=== PATIENT | female | born 1995 | race Caucasian/White ===

== ENCOUNTER 2019-02-27 17:29 | Inpatient (IN) | payer OTHER ==
[2019-02-27] MEDS ORDERED: CARBOPROST TROME 250 MCG/ML IM PRN (17:31)
[2019-02-27] MEDS ORDERED: Ringers Lactate 1,000 ML IV PRN (17:31)
[2019-02-27] MEDS ORDERED: METHYLERGONOVINE 0.2MG/ML AMP IM PRN (17:31)
[2019-02-27] MEDS ORDERED: BUTORPHANOL 1 MG/ML INJ IV PRN (17:31)
--- OUTSIDE RECORDS SUMMARY | 2019-02-27 17:32 | XMS REPORT ---
:1995 Author Organization [employer] Care Team Providers Name Role Phone Singh Pacheco Provider Role Unavailable Allergies No Known Allergies Problems Problem Type Condition Code Onset Dates Condition Status Assessment Supervision of high risk O09.93 Active in third trimester Problem Supervision of high risk O09.92 Active in second trimester Problem Short interval between pregnancies O09.891 Active affecting in first trimester, antepartum Problem Supervision of high risk O09.93 Active in third trimester Problem Abdominal discomfort R10.9 Active Problem Possible urinary tract infection R39.89 Active Problem Cystitis N30.90 Active Medications Medication Code Code Instructions Start End Date Status Dosage System Date Zofran ODT [facility] 65678920371 4 MG Orally Jul 11, Active 1 tablet on every 4 -6hrs or 2018 the tongue whenever and allow to necessary dissolve as needed Augmentin [facility] [id number] 875-125 MG Active 1 tablet Orally every 12 hrs Results No Known Results Summary Purpose [employer] Submission
[2019-02-27] MEDS ORDERED: ROPIVACAINE HCL 100 ML IV ONE (17:37)
[2019-02-27] MEDS ORDERED: FENTANYL CITR 100 MCG/2 ML IV ONE (17:37)
[2019-02-27] MEDS ORDERED: ROPIVACAINE HCL 2 MG/ML 100ML IV ONE (17:38)
[2019-02-27] MEDS ORDERED: ROPIVACAINE HCL 0 ML ONE (17:46)
[2019-02-27] MEDS ORDERED: OXYTOCIN/LR 20 UNIT/1,000 ML BAG IV SCH ×2 (18:00→20:00)
[2019-02-27] MEDS ORDERED: Ringers Lactate 1,000 ML IV SCH (18:00)
[2019-02-27 18:06] LABS: Basophils % 0.4 % (0-1.3); Hematocrit 32.5 % (36.0-45.0); Lymphocytes % 25.3 % (15.3-44.8); MPV 9.2 fL (7.6-11.3); RBC Red Blood Cell Count 3.96 M/uL (3.86-4.86)
[2019-02-27 18:51] VITALS: BMI 23.1
[2019-02-27 19:54] LABS: Urine Appearance CLEAR; Urine Bilirubin NEGATIVE (NEG); Urine Blood NEGATIVE (NEG); Urine Color YELLOW; Urine Glucose NEGATIVE (NEG); Urine Protein NEGATIVE (NEG); Urine Specific Gravity <=1.005 (1.005-1.030); Urine Urobilinogen 0.2 mg/dL (0.2-1.0)
[2019-02-27 19:57] LABS: Urine Microscopic Reflex NO UMIC
--- NOTE | 2019-02-27 21:27 | P.OBGYNHP ---
Certification for Inpatient Patient admitted to: Inpatient With expected LOS: <2 Midnights Patient will require the following post-hospital care: None Practitioner: I am a practitioner with admitting privileges, knowledge of patient current condition, hospital course, and medical plan of care. Services: Services provided to patient in accordance with Admission requirements found in Title 42 Section 412.3 of the Code of Federal Regulations Patient History Date of Service: 02/27/19 Reason for admission: LABOR History of Present Illness: Patient is a 23 y/o who presents to labor and delivery at 38 weeks and 5 days gestation in active labor. Patient presents c/o contractions and pelvic pain. She denies vaginal bleeding or leakage of fluid. She reports good movements. She began care at 6 weeks gestation and has been compliant with al visits. She has been followed by MFM as well due to h/o threatened labor in this and last as well as borderline short cervix. Patient was taking oral terbutaline and then procardia for the management of threatened labor but stopped at some point. She also saw cardiology due to persistent tachycardia but all work up was normal. She presented to labor and delivery 2 days ago at which time her cervix was dilated fingertip and now today she is 3-4 cm dilated. See record for further details. Allergies penicillin G Allergy (Severe, Verified 07/17/15 07:53) Nausea/Vomiting Home Medications: Pnv Cmb#95/Ferrous Fumarate/FA [ Tablet] 1 each PO DAILY 02/27/19 - Past Medical/Surgical History Has patient received pneumonia vaccine in the past: Yes Diabetic: No -: acid reflux -: NVD - 07/25/2013 -: NVD - 07/17/2015 -: NVD - 05/2017 - Family History Father -: Heart disease, Cancer - Social History Smoking Status: Never smoker Alcohol use: No CD- Drugs: No Caffeine use: No Place of Residence: Home Review of Systems 10-point ROS is otherwise unremarkable Physical Examination - Vital Signs Temperature: 99.2 F Blood Pressure: 145/88 Pulse: 86 Respirations: 18 - General General: Alert, Oriented x3, Mild distress (patient has now received an epidural ) HEENT: Atraumatic Neck: Supple Respiratory: Normal air movement Cardiovascular: No edema, Normal pulses Breasts: Normal configuration, Normal contours Gastrointestinal: Other (Gravid abdomen) Musculoskeletal: No clubbing, No swelling Integumentary: No rashes, No breakdown Neurological: Normal gait, Normal speech, Normal tone - Female Pelvic External genitalia: Normal, No lesions, No masses Vagina: Normal Cervix: Dilation (4 cm), Effacement (60%), station (-1) Uterus: Gravid Adnexa: Unable to evaluate - Obstetrics heart rate tracing: Category 2 Contractions: Frequency (every 3-5 minutes) Amniotic membrane: AROM (clear fluid) Laboratory Data (last 24 hrs) 02/27/19 17:20: WBC 8.0, Hgb 11.3 L, Hct 32.5 L, Plt Count 131 L Microbiology Data (last 24 hrs): GBS negative. Assessment and Plan - Plan Patient is a 23 y/o who presents to labor and delivery at 38 weeks and 5 days gestation in active labor. GBS negative. Epidural catheter has been placed and patient is comfortable. Rupture of membranes has been performed. Continuous /maternal monitoring will be performed. Anticipate vaginal . Discharge Plan: Home Plan to discharge in: 48 Hours - Advance Directives Does patient have a Living Will: No Does patient have a Durable POA for Healthcare: No
[2019-02-27 22:24] LABS: RPR (Rapid Plasma Reagin) NON-REACT (NON-REACT)
[2019-02-27] MEDS ORDERED: ONDANSETRON 4 MG (ODT) TAB PO PRN (23:10)
[2019-02-27] MEDS ORDERED: ACETAMINOPHEN 500 MG TAB PO PRN (23:10)
[2019-02-27] MEDS ORDERED: METHYLERGONOVINE 0.2 MG TAB PO PRN (23:10)
[2019-02-27] MEDS ORDERED: KETOROLAC 30 MG/ML INJ ONE (23:10)
--- NOTE | 2019-02-27 23:10 | P.OP ---
Date of Service: 02/27/19 Findings and Operative Technique Patient delivered a viable female in cephalic presentation on 02/27/19 at 22:55. Nuchal cord was present x1, was loose. Once infant was delivered the nose and mouth were suctioned with a suction bulb and cord was clamped and cut. was given to mother for skin to skin bonding. Placenta was delivered at 22:59 and was noted to be intact. Perineum was noted to be intact. EBL was 250cc. APGARS were 9/9. Weight was found to be 7lb 2 ounces. First stage of labor was 5 hours and 35 minutes. Second stage was 5 minutes. Both mom and baby are doing well. Mother plans to breastfeed.
[2019-02-27] MEDS ORDERED: KETOROLAC 30 MG/ML INJ IV PRN (23:12)
[2019-02-28] MEDS: Oxycodone HCl/Acetaminophen 1 TAB TAB PO PRN ×3 (02:15→15:34)
[2019-02-28] MEDS: IBUPROFEN 200 MG TAB PO PRN ×3 (06:10→23:45)
[2019-02-28 08:45] LABS: Absolute Lymphocytes (CBC) 1.9 K/uL (0.7-4.9); Basophils % 0.3 % (0-1.3); Hematocrit 30.2 % (36.0-45.0); RBC Red Blood Cell Count 3.69 M/uL (3.86-4.86)
[2019-03-01 07:18] VITALS: BP 119/73; TEMP 98.1
[2019-03-01] MEDS ORDERED: Tdap (Diph,Pertuss(Acell),Tet Vac) 0.5 ML SYR IMVAC ONE (07:46)
[2019-03-02 13:20] LABS: HBsAG Nonreactive (Nonreactive)
== END 2019-03-01 08:00 | disposition home or self-care (01) | DRG 807 ==
LOC: 2ND-WC 17:29
PROVIDERS: ADMIT Student in an Organized Health Care Education/Training Program; ATTEND Student in an Organized Health Care Education/Training Program
PROC: 10E0XZZ Delivery of Products of Conception, External Approach (ICD-10-PCS; principal; 2019-02-27)
PROC: 10907ZC Drainage of Amniotic Fluid, Therapeutic from Products of Conception, Via Natural or Artificial Opening (ICD-10-PCS; 2019-02-27)
DX: O69.81X0 Labor and delivery complicated by cord around neck, without compression, not applicable or unspecified (principal); Z37.0 Single live birth; Z3A.38 38 weeks gestation of pregnancy; Z23 Encounter for immunization
CPT/HCPCS: 36415; 81003; 85025; 86592; 86901; 87340; 90471; 90715; 99218; G0433; J2210; J2590; J2795; J3010